=== PATIENT | female | born 1960 | race Caucasian/White ===

== ENCOUNTER → 2017-05-18 | Day surgery (SDC) | payer OTHER ==
[~2017-05-18] MED LIST: BUPIVACAINE HCL 0.5% INJ 30 ML VIAL INJ ONE; CLINDAMYCIN 600MG/D5W 50ML 50 ML IV ONE; DEXAMETHASONE SOD PHOS INJ 4 MG/ML VIAL ONE; EPHEDRINE SULFATE INJ 50 MG/10 ML SYR ONE; FENTANYL CITRATE/PF 100MCG/2 ML INJ ONE; GABAPENTIN300 MG PO; GLYCOPYRROLATE INJ 1MG/ 5 ML SYR ONE; LIDOCAINE HCL 2% LOCAL INJ 5 ML SDV VIAL INJ ONE; LISINOPRIL10 MG PO; MIDAZOLAM HCL 2 MG/2 ML VIAL ONE; NEOSTIGMINE 1 MG/ML 10ML VIAL ONE; OMEPRAZOLE40 MG PO; ONDANSETRON HCL INJ 2 MG/ML VIAL ONE; PROPOFOL IV EMULSION 10 MG/ML 20 ML VIAL ONE; SEVOFLURANE INHAL SOLN 250 ML PEN BTL ONE
--- NOTE | 2017-05-18 12:53 | Operative Report ---
DATE OF PROCEDURE: May 18, 2017 PREOPERATIVE DIAGNOSES 1. Chronic plantar fasciitis. 2. Bone spur, left foot. POSTOPERATIVE DIAGNOSES 1. Chronic plantar fasciitis. 2. Bone spur, left foot. PROCEDURES 1. Endoscopic plantar fasciotomy, left foot. 2. Excision of calcaneal bone spur, left foot. PATHOLOGY: None. ANESTHESIA: General anesthetic. HEMOSTASIS: Pneumatic ankle tourniquet at 250 mmHg. ESTIMATED BLOOD LOSS: Less than 10 mL. MATERIALS: None. INJECTABLES: 10 mL of 0.5% Marcaine plain given preop. COMPLICATIONS: None. CONDITION: Stable. PROCEDURE IN DETAIL: Under mild sedation, the patient was brought to the operating room and placed on the operating table in the supine position. Following IV sedation, anesthesia was obtained with a general anesthetic. At this point, the left foot was scrubbed, prepped and draped in the usual aseptic manner. It was then lowered to the table after the pneumatic tourniquet was inflated to 250 mmHg. Endoscopic plantar fasciotomy: Attention was directed to the medial aspect of the left foot, where a linear incision was made overlying the insertion of the plantar fascia into the calcaneus. The incision was deepened down to the level of the plantar fascia, taking care to retract or cauterize neurovascular structures as necessary. A fascia isolator was then used. The fascia was then isolated. Once it was isolated, it was removed. The trocar and cannula were inserted. The trocar was removed. A camera was inserted. A small lateral portal was then made in order for the trocar to come out. The camera was inserted. The medial, central and lateral bands were visualized. Utilizing a fascia blade, the medial and central bands were transected [id number]. The lateral band was left intact. All instruments were removed. The area was then flushed with copious amounts of normal sterile saline solution. Excision of calcaneal exostosis, bone spur: Attention was then directed to the plantar aspect of the left foot where, utilizing a [place], the calcaneal exostosis was then isolated. Once it was isolated, with the use of intraop fluoroscopy, the exostosis was removed with a combination of a bone rongeur and a power rasp. There was noted to be complete removal. The area was made smooth. The area was then flushed with copious amount of normal sterile saline solution. Clinically and with the use of intraop fluoroscopy, this was confirmed. All areas were flushed and then closed, closing with 4-0 nylon. A clean dressing was applied consisting of Adaptic ointment, 4 x 4's, Kerlix and an Reza bandage. The tourniquet was deflated. There was noted to be a hyperemic response to all the digits. The patient tolerated the procedure and anesthesia well without complications. She was transported to the recovery room with vital signs stable and vascular status intact to both feet. The patient will be discharged home when she meets criteria. She was given instructions to be strictly nonweightbearing, to ice and elevate the foot while at rest, to follow up with me in the office and to call the office if any questions, concerns or any problems arise. Job#: [id number]
== END | disposition home or self-care (01) ==
LOC: OR 09:29
PROVIDERS: ATTEND Podiatrist Foot & Ankle Surgery
DX: M72.2 Plantar fascial fibromatosis (principal); M77.32 Calcaneal spur, left foot; I10 Essential (primary) hypertension; K21.9 Gastro-esophageal reflux disease without esophagitis; Z01.810 Encounter for preprocedural cardiovascular examination
CPT/HCPCS: 28104; 29893; 93005; J1100; J2001; J2250; J2405; J2710; 76000

== ENCOUNTER → 2017-07-06 | Outpatient (CLI) | payer OTHER ==
[~2017-07-06] MED LIST changes: -BUPIVACAINE HCL 0.5% INJ 30 ML VIAL INJ ONE; -CLINDAMYCIN 600MG/D5W 50ML 50 ML IV ONE; -DEXAMETHASONE SOD PHOS INJ 4 MG/ML VIAL ONE; -EPHEDRINE SULFATE INJ 50 MG/10 ML SYR ONE; -FENTANYL CITRATE/PF 100MCG/2 ML INJ ONE; -GLYCOPYRROLATE INJ 1MG/ 5 ML SYR ONE; -LIDOCAINE HCL 2% LOCAL INJ 5 ML SDV VIAL INJ ONE; -MIDAZOLAM HCL 2 MG/2 ML VIAL ONE; -NEOSTIGMINE 1 MG/ML 10ML VIAL ONE; -ONDANSETRON HCL INJ 2 MG/ML VIAL ONE; -PROPOFOL IV EMULSION 10 MG/ML 20 ML VIAL ONE; -SEVOFLURANE INHAL SOLN 250 ML PEN BTL ONE
--- NOTE | 2017-07-07 08:14 | Diagnostic Imaging Report ---
#[id number] - MGSCRBIL #BILATERAL DIGITAL SCREENING MAMMOGRAM WITH CAD: 07/06/2017 CLINICAL: Routine screening. Comparison is made to exam dated: 08/21/2016 mammogram - [facility]. Current study contains 4 films. The tissue of both breasts is extremely dense, which lowers the sensitivity of mammography. Current study was also evaluated with a Computer Aided Detection (CAD) system. There are benign calcifications in both breasts. There also are benign lymph nodes in both breasts. No significant masses, calcifications, or other findings are seen in either breast. There has been no significant interval change. IMPRESSION: BENIGN There is no mammographic evidence of malignancy. A 1 year screening mammogram is recommended. The patient will be notified by letter of the results. Arslan garcia/martha:07/06/2017 12:44:54 Sergeant At [employer]: Lela MCMULLEN(Pierce)(M), [facility] letter sent: Compared to Prior B9 Mammogram BI-RADS: 2 Benign
== END ==
LOC: MAMMO 08:23
PROVIDERS: ATTEND Internal Medicine
DX: Z12.31 Encounter for screening mammogram for malignant neoplasm of breast (principal)
CPT/HCPCS: 77067

== ENCOUNTER → 2018-02-08 | Day surgery (SDC) | payer OTHER ==
[~2018-02-08] MED LIST changes: +BUPIVACAINE HCL 0.5% INJ 30 ML VIAL INJ ONE; +CLINDAMYCIN PHOS 900MG/ 50ML 50 ML IV ONE; +DEXAMETHASONE SOD PHOS INJ 4 MG/ML VIAL ONE; +FENTANYL CITRATE/PF 100MCG/2 ML INJ ONE; +KETOROLAC TROMETHAMINE 30 MG/ML VIAL ONE; +LIDOCAINE HCL 2% LOCAL INJ 5 ML SDV VIAL INJ ONE; +MIDAZOLAM HCL 2 MG/2 ML VIAL ONE; +NEOSTIGMINE 1 MG/ML 10ML VIAL ONE; +ONDANSETRON HCL INJ 2 MG/ML VIAL ONE; +PROPOFOL IV EMULSION 10 MG/ML 20 ML VIAL ONE; +SEVOFLURANE INHAL SOLN 250 ML PEN BTL ONE
--- OUTSIDE RECORDS SUMMARY | 2018-02-08 06:27 | XMS REPORT ---
Author Author [facility] Address Unknown Phone Unavailable Care Team Providers Care Outside Event Sales Specialist Name Role Phone ENRIQUE HIDALGO Unavailable Unavailable Problems This patient has no known problems. Allergies, Adverse Reactions, Alerts This patient has no known allergies or adverse reactions. Medications This patient has no known medications. Results Test Description Test Time Test Comments Text Results Atomic Results Result Comments MAMMOGRAPHY DIGITAL SCR BILAT [place] [id number] [place] [id number] Patient Name: PALMIRA ELLIS MR #: [id number] : 1960 Age/Sex: 57/F Req #: [id number] [facility] Physician: Ordered by: ENRIQUE HIDALGO MD Report #: [id number] Location: MAMMO Room/Bed: Procedure: [id number] MG/MAMMOGRAPHY DIGITAL SCR BILAT Exam Date: 07/06/17 Exam Time: 0840 REPORT STATUS: Signed #[id number] - MGSCRBIL #BILATERAL DIGITAL SCREENING MAMMOGRAM WITH CAD: 07/06/2017 CLINICAL: Routine screening. Comparison is made to exam dated: 08/21/2016 mammogram - [facility]. Current study contains 4 films. The tissue of both breasts is extremely dense, which lowers the sensitivity of mammography. Current study was also evaluated with a Computer Aided Detection (CAD) system. There are benign calcifications in both breasts. There also are benign lymph nodes in both breasts. No significant masses, calcifications, or other findings are seen in either breast. There has been no significant interval change. IMPRESSION: BENIGN There is no mammographic evidence of malignancy. A 1 year screening mammogram is recommended. The patient will be notified by letter of the results. Jack garcia/des:07/06/2017 12:44:54 Travel Registered Nurse Icu: Lela MCMULLEN(Pierce)([place]es), [facility] letter sent: Compared to Prior B9 Mammogram BI-RADS: 2 Benign Dictated By: JACK GO DO [id number] Transcribed By: DES on 07/06/17 1244 COPY TO: ENRIQUE HIDALGO MD
--- NOTE | 2018-02-08 07:15 | NUR ---
SPIRITUAL CARE - Pre-Surgery Assessment: Pt in bed. Pt's friend at bedside. Pt reported supportive attention from family and friends. Intervention: I provided pastoral presence, hospitality, and sympathetic listening. I acquainted pt with availability of biomass power plant manager while hospitalized. Outcome: Pt expressed appreciation for visit. No need for follow up indicated at this time. MARTA Downslain Spiritual Care Department O: [phone] Pager: [phone] ([phone] number calling from)
--- NOTE | 2018-02-08 09:59 | Operative Report ---
DATE OF PROCEDURE: February 08, 2018 PREOPERATIVE DIAGNOSES 1. Chronic plantar fasciitis with preformed bone spur, right foot. 2. Degenerative joint disease, midfoot, left. POSTOPERATIVE DIAGNOSES 1. Chronic plantar fasciitis with preformed bone spur, right foot. 2. Degenerative joint disease, midfoot, left. PROCEDURES 1. Endoscopic plantar fasciotomy with removal of bone spur, right foot. 2. Trigger point injection to the midfoot, left foot. 3. Use of human allograft into the plantar fascia on the right to prevent adhesions and to decrease inflammatory response and to promote healing. PATHOLOGY: None. COMPLICATIONS: None. ANESTHESIA: General anesthetic. HEMOSTASIS: Pneumatic ankle tourniquet at 250 mmHg. ESTIMATED BLOOD LOSS: Less than 10 mL. MATERIALS: 2 x4 human allograft. CONDITION: Stable. PROCEDURE IN DETAIL: Under mild sedation, the patient was brought to the operating room and placed on the operating table in the supine position. Following IV sedation, anesthesia was begun with a general anesthetic. At this point, the right foot was scrubbed, prepped and draped in the usual aseptic manner. The pneumatic ankle tourniquet was inflated to 250 mmHg. The leg was lowered to the table. Endoscopic plantar fasciotomy with removal of bone spur, right foot. Attention was then directed to the medial aspect of the right foot where a linear incision was made overlying the plantar fascia. The incision was deepened via sharp and blunt dissection down to the level of the plantar fascia. Utilizing a fascial isolator, the fascia was isolated. Trocar and cannula were then removed. The trocar was removed. The camera was inserted. The medial, central and lateral veins were visualized. Utilizing a fascial blade, the medial and central veins were then transected leaving the lateral band intact. All instruments were removed. The area was then flushed with copious amount of normal sterile saline solution. Removal of bone spur exostosis, plantar calcaneous. Attention was then directed to the medial aspect of the right foot where utilizing sharp and blunt dissection, the plantar calcaneal exostosis was then isolated under the use of intraop fluoroscopy. The exostosis was then removed. The area of the wound was then made smooth. The area was then flushed with copious amounts of normal sterile saline solution. The use of human allograft was then inserted of 2 x 4 into the area of the plantar fascia to promote healing and to prevent adhesions to the area, and to decrease the inflammatory response. The area was then closed closing with 4-0 nylon simple interrupted sutures. All incisions were dressed with sterile compressive dressing consisting of Adaptic, 4 x 4's, Kerlix, and an Reza bandage. The tourniquet was deflated. There was noted to be hyperemic response to all the digits. At this point, under the use of intraop fluoroscopy and mapped preop, the painful area of the dorsal aspect of the left foot had 4 mg of Decadron injection with 2 mL of lidocaine were given into the area. A clean dressing was applied with a Band-Aid. The patient tolerated the procedure and anesthesia well without complications. Was transported to the recovery room with vital signs stable and vascular status intact to both feet. The patient will be discharged home when she meets criteria. She was given instructions to be nonweightbearing to the right foot, ice and elevate the foot, and to follow up with me in the office. Call the office if any questions, concerns or any problems arise. Job#: [id number] MIA
[2018-02-08 10:00] VITALS: BP 109/64
== END | disposition home or self-care (01) ==
LOC: OR 06:25
PROVIDERS: ATTEND Podiatrist Foot & Ankle Surgery
DX: M72.2 Plantar fascial fibromatosis (principal); M77.31 Calcaneal spur, right foot; M19.072 Primary osteoarthritis, left ankle and foot; I10 Essential (primary) hypertension; K21.9 Gastro-esophageal reflux disease without esophagitis; Z87.891 Personal history of nicotine dependence; R00.1 Bradycardia, unspecified; Z88.1 Allergy status to other antibiotic agents; Z88.0 Allergy status to penicillin; Z01.810 Encounter for preprocedural cardiovascular examination
CPT/HCPCS: 20600; 28104; 29893; 93005; J1100; J1885; J2001; J2250; J2405; J2704; J2710; Q4150; 76000

== ENCOUNTER → 2018-07-07 | Outpatient (CLI) | payer OTHER ==
[~2018-07-07] MED LIST changes: -BUPIVACAINE HCL 0.5% INJ 30 ML VIAL INJ ONE; -CLINDAMYCIN PHOS 900MG/ 50ML 50 ML IV ONE; -DEXAMETHASONE SOD PHOS INJ 4 MG/ML VIAL ONE; -FENTANYL CITRATE/PF 100MCG/2 ML INJ ONE; -KETOROLAC TROMETHAMINE 30 MG/ML VIAL ONE; -LIDOCAINE HCL 2% LOCAL INJ 5 ML SDV VIAL INJ ONE; -MIDAZOLAM HCL 2 MG/2 ML VIAL ONE; -NEOSTIGMINE 1 MG/ML 10ML VIAL ONE; -ONDANSETRON HCL INJ 2 MG/ML VIAL ONE; -PROPOFOL IV EMULSION 10 MG/ML 20 ML VIAL ONE; -SEVOFLURANE INHAL SOLN 250 ML PEN BTL ONE
== END ==
LOC: MAMMO 08:39
PROVIDERS: ATTEND Internal Medicine
DX: Z12.31 Encounter for screening mammogram for malignant neoplasm of breast (principal)
CPT/HCPCS: 77067

== ENCOUNTER → 2019-08-29 | Outpatient (CLI) | payer OTHER | LOC: MAMMO 10:47 | PROVIDERS: ATTEND Internal Medicine | DX: Z12.31 Encounter for screening mammogram for malignant neoplasm of breast (principal) | CPT/HCPCS: 77067 ==